=== PATIENT | female | born 1990 | race Asian ===

== ENCOUNTER 2019-01-29 14:21 | Emergency (ER) | payer OTHER ==
[~2019-01-29] VITALS: Ht 157.5 cm; Wt 57.3 kg
[2019-01-29] MEDS ORDERED: IBUPROFEN 600 MG TAB PO ONE (14:45)
--- NOTE | 2019-01-29 14:59 | REP ---
Clinical: Trauma . Comparison: None . Findings: The ventricles, sulci, and cisterns are normal in position and appearance. Adair-white differentiation is maintained. No acute intracranial hemorrhage, mass/mass effect, pathology or trauma/injury. No evidence for acute infarction. No extra-axial fluid collection. Calvarium is intact. Paranasal sinuses and mastoid air cells are clear. Impression: Normal noncontrast head CT. No evidence for acute intracranial pathology or trauma/injury. Electronically Signed by Fortunato Estes MD 01/29/2019 02:51 P
--- NOTE | 2019-01-29 15:00 | REP ---
Clinical: Trauma . Technique: Axial noncontrast images from the skull base to the thoracic inlet with coronal and sagittal re-formations Findings: Normal alignment and lordosis is maintained. Cervical vertebral bodies including transverse processes and spinous processes are intact and there is no evidence for acute fracture / compression injury or subluxation. Spinal canal is patent. Posterior elements are intact. Paravertebral soft tissues are normal. Impression: Normal noncontrast cervical spine CT. No evidence for acute pathology or trauma/injury. Electronically Signed by Fortunato Estes MD 01/29/2019 02:52 P
--- NOTE | 2019-01-29 15:02 | REP ---
Clinical: Trauma. Technique: Axial noncontrast images through the thoracic spine with coronal and sagittal re-formations. Findings: Thoracic vertebral bodies are intact and demonstrate normal alignment and kyphosis. There is no evidence for acute fracture / compression injury or subluxation. Spinal canal appears patent and normal. Posterior elements and spinous processes are intact. Paravertebral soft tissues are normal. Impression: Normal thoracic spine CT. No acute trauma/injury. Electronically Signed by Fortunato Estes MD 01/29/2019 02:54 P
--- NOTE | 2019-01-29 15:04 | REP ---
Clinical: Trauma . Technique: Axial noncontrast images from mid T12 through mid sacrum with coronal and sagittal re-formations Findings: Normal alignment and lordosis is maintained. Lumbar vertebral bodies including transverse processes and spinous processes are intact and there is no evidence for acute fracture / compression injury or subluxation. Spinal canal is patent. Posterior elements are intact. Paravertebral soft tissues are normal. Impression: Normal noncontrast lumbosacral spine CT. No evidence for acute pathology or trauma/injury. Electronically Signed by Fortunato Estes MD 01/29/2019 02:56 P
--- NOTE | 2019-01-29 15:42 | REP ---
Clinical: Trauma . Comparison: None . Technique: PA and lateral. Findings: The mediastinum and cardiac silhouette are normal. The lung delgado are clear and without acute consolidation, effusion, or pneumothorax. The skeletal structures are intact and normal. Impression: 1. No acute cardiopulmonary process. Electronically Signed by Fortunato Estes MD 01/29/2019 03:33 P
--- NOTE | 2019-01-29 15:43 | REP ---
Clinical: Trauma. Technique: AP, lateral, bilateral oblique and sunrise views left knee . Findings: The osseous structures and joint spaces are intact and normal. There is no evidence for acute fracture or dislocation. No joint effusion is appreciated. Surrounding soft tissues are unremarkable. No subcutaneous emphysema or radiodense foreign body. Impression: No definite acute fracture or dislocation. Electronically Signed by Fortunato Estes MD 01/29/2019 03:34 P
[2019-01-29 15:53] VITALS: BP 133/80
[2019-05-25] MEDS ORDERED: NON-325T5 PO (10:45)
[2019-05-25] MEDS ORDERED: TRAZ-186 PO (10:45)
[2019-05-25] MEDS ORDERED: IBUP200C25 PO (10:45)
== END 2019-01-29 15:55 | disposition home or self-care (01) ==
LOC: M ED 14:21 → EDBD 14:21 → M ED 15:55
DX: S16.1XXA Strain of muscle, fascia and tendon at neck level, initial encounter (principal); S80.02XA Contusion of left knee, initial encounter; V49.40XA Driver injured in collision with unspecified motor vehicles in traffic accident, initial encounter; Y92.410 Unspecified street and highway as the place of occurrence of the external cause; F17.200 Nicotine dependence, unspecified, uncomplicated; J30.1 Allergic rhinitis due to pollen

== ENCOUNTER 2019-06-08 11:03 | Day surgery (SDC) | payer OTHER ==
[~2019-06-08] VITALS: Ht 157.5 cm; Wt 56.2 kg
[~2019-06-08 11:03] MED LIST: IBUP200C25 PO; NON-325T5 PO; TRAZ-186 PO
[2019-06-08 11:48] LABS: HEMATOCRIT 44.3 % (36.0-47.0); HEMOGLOBIN 14.5 g/dl (12.0-15.5); MEAN CORPUSCULAR HEMOGLOBIN 31.5 pg (27.0-33.0); MEAN CORPUSCULAR HGB CONC 32.7 g/dl (32.0-36.5); MEAN CORPUSCULAR VOLUME 96.3 fl (80.0-96.0); PLATELET COUNT, AUTOMATED 275 10^3/uL (150-450); WHITE BLOOD COUNT 6.5 10^3/uL (4.0-10.0)
[2019-06-08 12:12] LABS: HCG, SERUM QUALITATIVE NEGATIVE (NEGATIVE)
[2019-06-08] MEDS ORDERED: dexameTHASONE 4 MG/ML 1ML VIAL (J1100) As Ordered ONE (12:24)
[2019-06-08] MEDS ORDERED: ONDANSETRON 4MG/2ML VIAL (J2405) As Ordered ONE (12:24)
[2019-06-08] MEDS ORDERED: KETOROLAC 60 MG/2 ML VIAL (J1885) As Ordered ONE (12:24)
[2019-06-08] MEDS ORDERED: fentaNYL 100 MCG/2 ML INJECTION (J3010) As Ordered ONE (12:24)
[2019-06-08] MEDS ORDERED: MIDAZOLAM INJ 2 MG/2 ML VIAL (J2250) As Ordered ONE (12:24)
[2019-06-08] MEDS ORDERED: LIDOCAINE 2% INJ 100 MG/5 ML SDV (FOR ANES.) As Ordered ONE (12:25)
[2019-06-08] MEDS ORDERED: PROPOFOL 200 MG/20 ML VIAL As Ordered ONE ×2 (12:25→13:31)
[2019-06-08] MEDS ORDERED: ACETAMINOPHEN 1000MG 100ML IV BTL (OFIRMEV) (J0131 PER 10MG) As Ordered ONE (12:31)
[2019-06-08] MEDS ORDERED: IODINE STRONG SOLN 15 ML BTL As Ordered ONE (13:01)
[2019-06-08] MEDS ORDERED: BUPIVACAINE/EPIN 0.25% 30 ML VIAL As Ordered ONE (13:02)
--- NOTE | 2019-06-08 14:21 | POST-OPPD ---
Postoperative Procedure Note Date Of Procedure: Jun 08, 2019 PREOPERATIVE DIAGNOSIS: HGSIL POSTOPERATIVE DIAGNOSIS: JUANCHO FINDINGS: cervix with scarring noted at 12oclock area. decreased uptake of lugols at 5, 7, and 11 oclock region. PROCEDURE: LEEP SURGEON: eros topete DO ANESTHESIA: MAC/Local SPECIMENS: LEEP specimen, ECC ESTIMATED BLOOD LOSS: < 5cc REPLACED: 600cc LR COMPLICATIONS: None POSTOPERATIVE CONDITION: stable Detailed procedure note: Indication: Patient is a 29 yo G0 using nexplanon for contraceptive with HGSIL desiring excisional biopsy. Description of procedure: The risks, benefits, indications and alternatives of the procedure were reviewed with the patient and informed consent was obtained. Risk of bleeding, infection, pain, need for repeat procedure, increased risk of delivery discussed with patient. She expresses understanding and desires to proceed. Patient was brought to OR with IV running. Patient placed under monitored conscious sedation. Placed in lithotomy position. Vaginal and perineum prepped and draped. An insulated speculum placed in the vagina and cervix identified. Transformation zone visualized. Paracervical block performed using Marcain 0.25% with epi (10 cc used). Short appearing cervix, scarring noted at 12oclock region. Lugos applied. Decreased uptake noted at 5, 7, and 11olock areas. Loop caudery size [id number] used. Power set to 60/60. Left to right 1 pass. Cervix cauderized thoroughly, hemostatic. ECC performed and cytobrush used to collect specimen. Monsels placed. All instruments removed from vagina. Count correct x 2. EROS TOPETE DO Jun 08, 2019 14:21
[2019-06-08] MEDS ORDERED: ACETAMINOPHEN TAB 650MG DOSE (2X325MG) As Ordered ONE (15:25)
[2019-06-08 16:00] VITALS: BP 120/71
[2019-06-08] MEDS ORDERED: ACETAMINOPHEN TAB 650MG DOSE (2X325MG) PO ONE (16:00)
== END 2019-06-08 16:05 | disposition home or self-care (01) ==
LOC: M SDC 11:03
PROVIDERS: ATTEND Obstetrics & Gynecology
DX: N87.1 Moderate cervical dysplasia (principal); R87.810 Cervical high risk human papillomavirus (HPV) DNA test positive; F41.9 Anxiety disorder, unspecified; G43.909 Migraine, unspecified, not intractable, without status migrainosus; Z79.899 Other long term (current) drug therapy; Z87.891 Personal history of nicotine dependence
CPT/HCPCS: 36415; 57522; 84703; 85027; 88305; 88307; J1100; J1885; J2250; J2405; J3010